=== PATIENT | male | born 1985 | race African-American/Black ===

== ENCOUNTER 2016-11-28 08:44 | Emergency (ER) | payer OTHER ==
[~2016-11-28] VITALS: Ht 160 cm; Wt 64.0 kg
[2016-11-28] MEDS ORDERED: ALBUTEROL (0.083%) 2.5MG/3ML NEB HHN STA (09:51)
[2016-11-28] MEDS ORDERED: KETOROLAC 60MG/2ML VIAL IM ONE (10:00)
[2016-11-28 10:34] VITALS: BP 113/72
== END 2016-11-28 12:20 | disposition home or self-care (01) ==
LOC: ER 08:55
DX: R06.00 Dyspnea, unspecified (principal); R07.9 Chest pain, unspecified; F17.200 Nicotine dependence, unspecified, uncomplicated; F12.10 Cannabis abuse, uncomplicated
CPT/HCPCS: 71010; 93005; 94640; 96372; 99284; 99406; J1885; J7611; Z7610